=== PATIENT | female | born 1940 | race Caucasian/White ===

== ENCOUNTER → 2018-12-25 | Outpatient (CLI) | payer MEDICARE, MEDICAID | END | disposition home or self-care (01) | LOC: PVL 10:12 | PROVIDERS: ATTEND Internal Medicine Nephrology | DX: I70.291 Other atherosclerosis of native arteries of extremities, right leg (principal) | CPT/HCPCS: 93923 ==

== ENCOUNTER 2019-04-15 08:09 | Inpatient (IN) | payer MEDICARE, MEDICAID ==
[~2019-04-15] VITALS: Ht 160 cm; Wt 90.7 kg
[2019-04-15 09:31] LABS: BASOPHILS % 1.1 % (0.0-2.0); EOSINOPHILS % 2.9 % (0.0-5.0); HEMATOCRIT. 30.8 % (36.0-48.0); LYMPHOCYTES % 18.6 % (20.0-50.0); MEAN CORPUSCULAR HEMOGLOBIN 25.3 pg (28.0-32.0); MEAN CORPUSCULAR VOLUME 77.9 fL (81.0-99.0); MEAN PLATELET VOLUME 9.6 fl (7.4-10.4); MONOCYTES % 10.9 % (2.0-8.0); NEUTROPHILS % 66.5 % (40.0-76.0); PLATELET 124 x1000/uL (130-400); RED BLOOD CELL COUNT 3.95 mill/uL (4.2-5.4); RED CELL DISTRIBUTION WIDTH 17.7 % (11.6-14.6)
[2019-04-15 09:40] LABS: PROTHROMBIN TIME 10.4 sec (9.6-11.0)
[2019-04-15] MEDS ORDERED: SODIUM CHLORIDE 0.9% 1,000 ML IV SCH (09:47)
[2019-04-15] MEDS ORDERED: HYDROCODONE/ACETAMINOPHEN 5/325MG TABLET PO PRN (11:00)
[2019-04-15] MEDS ORDERED: ONDANSETRON HCL 4MG/2ML INJ IV PRN ×2 (11:45→12:45)
[2019-04-15] MEDS ORDERED: MEPERIDINE HCL/PF 25MG/ML CPJ IV PRN (11:45)
[2019-04-15] MEDS ORDERED: LABETALOL 5MG/ML SYR 20 MG/4 ML SYRINGE IV PRN (11:45)
[2019-04-15] MEDS ORDERED: HYDROMORPHONE HCL/PF 2MG/ML CPJ IV PRN (11:45)
[2019-04-15] MEDS ORDERED: FURO80TA3 PO (12:15)
[2019-04-15] MEDS ORDERED: VARENICLINE PO (12:15)
[2019-04-15] MEDS ORDERED: INSU100V36 SQ (12:15)
[2019-04-15] MEDS ORDERED: ESOM40CA53 PO (12:15)
[2019-04-15] MEDS ORDERED: PREG150C46 PO (12:15)
[2019-04-15] MEDS ORDERED: NALO25TA PO (12:15)
[2019-04-15] MEDS ORDERED: RAMI10CA19 PO (12:15)
[2019-04-15] MEDS ORDERED: HYDR-4009 PO (12:15)
[2019-04-15] MEDS ORDERED: ASPI-1393 PO (12:15)
[2019-04-15] MEDS ORDERED: SIMV40TA5 PO (12:15)
[2019-04-15] MEDS ORDERED: CALC30CA PO (12:15)
[2019-04-15] MEDS ORDERED: DOCU-286 PO (12:15)
[2019-04-15] MEDS ORDERED: MAGNESIUM/ALUMINUM HYDROXIDE/SIMETHICONE 30ML UDC PO PRN (12:45)
[2019-04-15] MEDS ORDERED: DOCUSATE SODIUM 100MG CAPSULE PO PRN (12:45)
[2019-04-15] MEDS ORDERED: LORAZEPAM 0.5MG TABLET PO PRN (12:45)
[2019-04-15] MEDS ORDERED: CLONIDINE 0.1MG TABLET PO PRN (12:45)
[2019-04-15] MEDS ORDERED: IPRATROPIUM/ALBUTEROL 0.5-3(2.5)MG/3ML NEB NEB PRN (12:45)
[2019-04-15] MEDS ORDERED: GUAIFENESIN 200MG/10ML SUGAR FREE UDC PO PRN (12:45)
[2019-04-15] MEDS ORDERED: NITROGLYCERIN 0.4MG TABLET SL SL PRN (12:45)
[2019-04-15] MEDS ORDERED: TRAMADOL 50MG TABLET PO PRN (16:46)
[2019-04-15] MEDS ORDERED: DEXTROSE 50% WATER 50ML SYRINGE IV PRN (16:47)
[2019-04-15] MEDS ORDERED: ACETAMINOPHEN 325MG TABLET PO PRN (17:00)
[2019-04-15] MEDS: BLOOD SUGAR DIAGNOSTIC STRIP TEST SCH ×2 (17:20→21:00)
[2019-04-15] MEDS: INSULIN LISPRO 100 UNITS/ML SUBCUT SCH ×2 (17:50→21:00)
[2019-04-15 18:08] LABS: EOSINOPHILS % 3.2 % (0.0-5.0); HEMATOCRIT. 27.4 % (36.0-48.0); LYMPHOCYTES % 25.5 % (20.0-50.0); MEAN CORPUSCULAR HEMOGLOBIN 25.8 pg (28.0-32.0); MEAN CORPUSCULAR VOLUME 78.3 fL (81.0-99.0); MEAN PLATELET VOLUME 9.3 fl (7.4-10.4); MONOCYTES % 10.1 % (2.0-8.0); NEUTROPHILS % 60.2 % (40.0-76.0); PLATELET 109 x1000/uL (130-400); RED CELL DISTRIBUTION WIDTH 17.7 % (11.6-14.6)
[2019-04-15 18:23] VITALS: BP 120/60
[2019-04-15] MEDS ORDERED: PNEUMOCOCCAL 23-VAL P-SAC VAC 0.5 ML IM ONE (19:15)
[2019-04-15] MEDS ORDERED: INFLUENZA VIRUS VACCINE(AFLURIA) 0.5ML SYR IM ONE (19:15)
[2019-04-15 20:00] VITALS: BP 155/51
[2019-04-15] MEDS: FAMOTIDINE 20MG TABLET PO SCH (20:11)
[2019-04-15] MEDS ORDERED: ZOLPIDEM TARTRATE 5MG TABLET PO PRN (21:00)
[2019-04-16] VITALS (7 sets, daily range): BP systolic 129–166; BP diastolic 46–60
[2019-04-16] MEDS: BLOOD SUGAR DIAGNOSTIC STRIP TEST SCH ×4 (07:20→20:38)
[2019-04-16] MEDS: INSULIN LISPRO 100 UNITS/ML SUBCUT SCH ×4 (07:35→20:52)
[2019-04-16 10:12] LABS: CLARITY URINE CLEAR (CLEAR); COLOR URINE YELLOW (YELLOW); KETONES URINE NEGATIVE (NEGATIVE); LEUKOCYTE ESTERASE URINE NEGATIVE (NEGATIVE); NITRITE URINE NEGATIVE (NEGATIVE); OCCULT BLOOD URINE NEGATIVE (NEGATIVE); PROTEIN URINE NEGATIVE (NEGATIVE); SPECIFIC GRAVITY URINE 1.016 (1.005-1.030); UROBILINOGEN URINE 0.2 E.U./dL (0.2-1.0)
[2019-04-16] MEDS: CEFAZOLIN 1000MG PREMIX 50 ML IV SCH ×2 (15:53→18:29)
[2019-04-16] MEDS: FAMOTIDINE 20MG TABLET PO SCH (20:33)
[2019-04-17] VITALS: BP 135/58
[2019-04-17] MEDS: CEFAZOLIN 1000MG PREMIX 50 ML IV SCH ×5 (00:49→23:58)
[2019-04-17] MEDS: MORPHINE SULFATE 2 MG/ML CPJ (NOT FOR IM USE) IV PRN ×3 (00:50→16:22)
[2019-04-17 04:00] VITALS: BP 120/58
[2019-04-17] MEDS: BLOOD SUGAR DIAGNOSTIC STRIP TEST SCH ×4 (06:25→20:57)
[2019-04-17 08:00] VITALS: BP 150/50
[2019-04-17] MEDS: INSULIN LISPRO 100 UNITS/ML SUBCUT SCH ×4 (09:28→21:00)
[2019-04-17 10:21] LABS: BASOPHILS % 1.3 % (0.0-2.0); EOSINOPHILS % 3.6 % (0.0-5.0); HEMATOCRIT. 28.2 % (36.0-48.0); HEMOGLOBIN. 9.2 g/dL (12.0-16.0); LYMPHOCYTES % 14.2 % (20.0-50.0); MEAN CORPUSCULAR HEMOGLOBIN 25.8 pg (28.0-32.0); MEAN PLATELET VOLUME 10.1 fl (7.4-10.4); MONOCYTES % 8.4 % (2.0-8.0); NEUTROPHILS % 72.5 % (40.0-76.0); PLATELET 95 x1000/uL (130-400); RED BLOOD CELL COUNT 3.56 mill/uL (4.2-5.4); RED CELL DISTRIBUTION WIDTH 16.9 % (11.6-14.6)
[2019-04-17 12:00] VITALS: BP 127/52
[2019-04-17 16:00] VITALS: BP 152/49
[2019-04-17 20:00] VITALS: BP 136/58
[2019-04-17] MEDS: FAMOTIDINE 20MG TABLET PO SCH (20:08)
[2019-04-18] VITALS: BP 115/52
[2019-04-18] MEDS: MORPHINE SULFATE 2 MG/ML CPJ (NOT FOR IM USE) IV PRN (03:31)
[2019-04-18 04:00] VITALS: BP 151/42
[2019-04-18] MEDS: CEFAZOLIN 1000MG PREMIX 50 ML IV SCH (06:00)
[2019-04-18] MEDS: BLOOD SUGAR DIAGNOSTIC STRIP TEST SCH (06:20)
[2019-04-18] MEDS ORDERED: EPOETIN ALFA 10000UNITS/ML VIAL SUBCUT ONE (08:00)
[2019-04-18] MEDS: INSULIN LISPRO 100 UNITS/ML SUBCUT SCH (09:36)
[2019-04-18 09:39] VITALS: BP 137/74
[2019-04-18 10:46] VITALS: BP 138/68
== END 2019-04-18 10:59 | disposition home health service (06) | DRG 252 ==
LOC: OR 08:09 → 6EST 08:10
PROVIDERS: ADMIT Internal Medicine; ATTEND Internal Medicine
PROC: 04CL0ZZ Extirpation of Matter from Left Femoral Artery, Open Approach (ICD-10-PCS; principal; 2019-04-15)
PROC: 04UL0KZ Supplement Left Femoral Artery with Nonautologous Tissue Substitute, Open Approach (ICD-10-PCS; 2019-04-15)
DX: E11.51 Type 2 diabetes mellitus with diabetic peripheral angiopathy without gangrene (principal); N17.0 Acute kidney failure with tubular necrosis; D62 Acute posthemorrhagic anemia; J98.11 Atelectasis; N25.81 Secondary hyperparathyroidism of renal origin; N18.4 Chronic kidney disease, stage 4 (severe); E11.22 Type 2 diabetes mellitus with diabetic chronic kidney disease; E11.42 Type 2 diabetes mellitus with diabetic polyneuropathy; E78.00 Pure hypercholesterolemia, unspecified; I12.9 Hypertensive chronic kidney disease with stage 1 through stage 4 chronic kidney disease, or unspecified chronic kidney disease; E66.9 Obesity, unspecified; Z96.652 Presence of left artificial knee joint; R33.9 Retention of urine, unspecified; D63.1 Anemia in chronic kidney disease; Z68.35 Body mass index [BMI] 35.0-35.9, adult; Z87.891 Personal history of nicotine dependence
CPT/HCPCS: 36415; 71045; 74176; 76770; 80048; 80061; 81003; 82962; 83036; 85651; 88304; 88311; 93005; 93970; J0690; J0885; J1815; J2270; A4315

== ENCOUNTER → 2021-01-13 | Outpatient (CLI) | payer MEDICARE, MEDICAID ==
[~2021-01-13] MED LIST: ASPI-1497 PO; CALC30CA PO; DOCU-286 PO; ESOM40CA53 PO; FURO80TA3 PO; HYDR-4009 PO; INSU100V36 SQ; NALO25TA PO; PREG150C93 PO; RAMI10CA68 PO; SIMV-46 PO; VARENICLINE PO
== END | disposition home or self-care (01) ==
LOC: MRI 07:59
PROVIDERS: ATTEND Internal Medicine Nephrology
DX: R16.0 Hepatomegaly, not elsewhere classified (principal); K82.0 Obstruction of gallbladder; K44.9 Diaphragmatic hernia without obstruction or gangrene
CPT/HCPCS: 74183; A9577

== ENCOUNTER 2021-03-09 09:50 | Inpatient (IN) | payer MEDICARE, MEDICAID ==
[~2021-03-09] VITALS: Ht 170.2 cm; Wt 92.5 kg
[~2021-03-09 09:50] MED LIST changes: -NALO25TA PO; +NALO25TA4 PO; +PREG150C46 PO; -PREG150C93 PO
[2021-03-09 11:30] VITALS: BP 172/58
[2021-03-09 12:00] VITALS: BP 172/58
[2021-03-09] MEDS ORDERED: DEXTROSE 50% WATER 50ML SYRINGE IV PRN (12:45)
[2021-03-09] MEDS ORDERED: DIAZ5TAB MT (12:54)
[2021-03-09] MEDS: BLOOD SUGAR DIAGNOSTIC STRIP TEST SCH ×3 (13:24→21:05)
[2021-03-09] MEDS: AMLODIPINE 10MG TABLET PO SCH (13:25)
[2021-03-09] MEDS: LOSARTAN POTASSIUM 50 MG TABLET PO SCH ×2 (13:25→21:14)
[2021-03-09] MEDS: FUROSEMIDE 40MG TABLET PO SCH (13:25)
[2021-03-09] MEDS: INSULIN LISPRO 100 UNITS/ML SUBCUT SCH ×4 (13:26→21:00)
[2021-03-09] MEDS ORDERED: IPRATROPIUM/ALBUTEROL 0.5-3(2.5)MG/3ML NEB NEB PRN (13:30)
[2021-03-09] MEDS ORDERED: ONDANSETRON HCL 4MG/2ML INJ IV PRN (13:30)
[2021-03-09] MEDS ORDERED: CLONIDINE 0.1MG TABLET PO PRN (13:30)
[2021-03-09] MEDS ORDERED: AMLODIPINE 10MG TABLET PO SCH (13:30)
[2021-03-09] MEDS ORDERED: ACETAMINOPHEN 650MG SUPP PR PRN (13:30)
[2021-03-09] MEDS ORDERED: GUAIFENESIN 200MG/10ML SUGAR FREE UDC PO PRN (13:30)
[2021-03-09] MEDS ORDERED: DOCUSATE SODIUM 100MG CAPSULE PO PRN (13:30)
[2021-03-09] MEDS ORDERED: ACETAMINOPHEN 650MG/20.3ML UDC GT PRN (13:30)
[2021-03-09] MEDS ORDERED: MAGNESIUM/ALUMINUM HYDROXIDE/SIMETHICONE 30ML UDC PO PRN (13:30)
[2021-03-09] MEDS ORDERED: NALOXONE HCL 0.4MG/ML VIAL IV PRN (14:30)
[2021-03-09 16:00] VITALS: BP 153/49
[2021-03-09] MEDS ORDERED: INFLUENZA VACCINE 05/PF 0.5 ML SYRINGE IM ONE (16:00)
[2021-03-09] MEDS ORDERED: PNEUMOCOCCAL 23-VAL P-SAC VAC 0.5 ML IM ONE (16:00)
[2021-03-09] MEDS ORDERED: APIX2.5T MT (18:20)
[2021-03-09] MEDS ORDERED: DIXL10 MT (18:20)
[2021-03-09] MEDS ORDERED: METO5TAB94 MT (18:20)
[2021-03-09] MEDS ORDERED: ATOR20TA65 MT (18:20)
[2021-03-09] MEDS ORDERED: DAPA10TA MT (18:20)
[2021-03-09] MEDS ORDERED: FOLI-43 MT (18:20)
[2021-03-09] MEDS ORDERED: ISOS60TA76 PO (18:20)
[2021-03-09] MEDS ORDERED: *PATIENT'S OWN MEDICATION STORAGE XX SCH (18:45)
[2021-03-09 19:56] LABS: BASOPHILS % 0.9 % (0.0-2.0); HEMATOCRIT. 32.2 % (36.0-48.0); HEMOGLOBIN. 10.2 g/dL (12.0-16.0); LYMPHOCYTES % 20.6 % (20.0-50.0); MEAN CORPUSCULAR HEMOGLOBIN 23.8 pg (28.0-32.0); MEAN CORPUSCULAR VOLUME 75.4 fL (81.0-99.0); MEAN PLATELET VOLUME 9.9 fl (7.4-10.4); MONOCYTES % 8.8 % (2.0-8.0); NEUTROPHILS % 66.7 % (40.0-76.0); PLATELET 205 x1000/uL (130-400); RED BLOOD CELL COUNT 4.27 mill/uL (4.2-5.4); RED CELL DISTRIBUTION WIDTH 19.4 % (11.6-14.6)
[2021-03-09 19:58] LABS: CHLORIDE 105 mEq/L (98-107)
[2021-03-09 20:00] VITALS: BP 129/35
[2021-03-09 20:02] LABS: INR 1.1; PARTIAL THROMBOPLASTIN TIME 28.5 sec (23.4-31.0); PROTHROMBIN TIME 11.3 sec (9.6-11.0)
[2021-03-09 20:04] LABS: PHOSPHORUS 4.2 mg/dL (2.5-4.9)
[2021-03-09 20:32] LABS: CLARITY URINE CLOUDY (CLEAR); COLOR URINE YELLOW (YELLOW); KETONES URINE NEGATIVE (NEGATIVE); LEUKOCYTE ESTERASE URINE 3+ (NEGATIVE); NITRITE URINE NEGATIVE (NEGATIVE); OCCULT BLOOD URINE TRACE (NEGATIVE); PH URINE 5.5 (4.5-8.0); PROTEIN URINE NEGATIVE (NEGATIVE); SPECIFIC GRAVITY URINE 1.007 (1.005-1.030); UROBILINOGEN URINE 0.2 E.U./dL (0.2-1.0)
[2021-03-09] MEDS: INSULIN GLARGINE UD 100 UNITS/ML SYR SUBCUT SCH (21:06)
[2021-03-09] MEDS: DOXAZOSIN MESYLATE 2MG TABLET PO SCH (21:13)
[2021-03-09] MEDS: HYDROCODONE/ACETAMINOPHEN 5/325MG TABLET PO PRN (21:14)
[2021-03-09] MEDS ORDERED: ENOXAPARIN 30MG/0.3ML SYR SUBCUT SCH (22:30)
[2021-03-10] VITALS (16 sets, daily range): BP systolic 109–149; BP diastolic 37–64
[2021-03-10] MEDS: BLOOD SUGAR DIAGNOSTIC STRIP TEST SCH ×4 (06:22→21:26)
[2021-03-10] MEDS: INSULIN LISPRO 100 UNITS/ML SUBCUT SCH ×7 (06:57→21:00)
[2021-03-10] MEDS: HYDROCODONE/ACETAMINOPHEN 5/325MG TABLET PO PRN ×2 (08:30→13:21)
[2021-03-10] MEDS: LOSARTAN POTASSIUM 50 MG TABLET PO SCH ×2 (08:33→18:23)
[2021-03-10] MEDS: FUROSEMIDE 40MG TABLET PO SCH (08:33)
[2021-03-10] MEDS: AMLODIPINE 10MG TABLET PO SCH (08:33)
[2021-03-10] MEDS ORDERED: CEFTRIAXONE 1 G PREMIX 50 ML IV SCH (09:45)
[2021-03-10 10:57] LABS: EOSINOPHILS % 3.7 % (0.0-5.0); HEMATOCRIT. 28.8 % (36.0-48.0); HEMOGLOBIN. 9.1 g/dL (12.0-16.0); MEAN CORPUSCULAR HEMOGLOBIN 24.1 pg (28.0-32.0); MEAN CORPUSCULAR VOLUME 76.5 fL (81.0-99.0); MEAN PLATELET VOLUME 9.8 fl (7.4-10.4); MONOCYTES % 11.6 % (2.0-8.0); NEUTROPHILS % 62.7 % (40.0-76.0); PLATELET 158 x1000/uL (130-400); RED BLOOD CELL COUNT 3.77 mill/uL (4.2-5.4); RED CELL DISTRIBUTION WIDTH 19.7 % (11.6-14.6)
[2021-03-10] MEDS ORDERED: CEFTRIAXONE 1,000 MG in DEXTROSE 5% WATER 50 ML IV SCH (11:00)
[2021-03-10] MEDS ORDERED: LIDOCAINE HCL 1% 20ML VIAL (Pyxis) INJ ONE (11:01)
[2021-03-10] MEDS ORDERED: SODIUM BICARBONATE 4% (2.4MEQ) 5ML VIAL IV ONE (11:01)
[2021-03-10] MEDS ORDERED: FENTANYL CITRATE/PF 50MCG/ML 2ML VIAL ONE (11:01)
[2021-03-10 11:05] LABS: CHLORIDE 105 mEq/L (98-107)
[2021-03-10] MEDS ORDERED: SODIUM CHLORIDE 0.9% 10ML VIAL ONE (11:17)
[2021-03-10] MEDS ORDERED: FENTANYL CITRATE/PF 50MCG/ML 2ML VIAL IV SCH (12:15)
[2021-03-10] MEDS: DOXAZOSIN MESYLATE 2MG TABLET PO SCH (20:56)
[2021-03-10] MEDS: ENOXAPARIN 40MG/0.4ML SYR SUBCUT SCH (21:00)
[2021-03-10] MEDS: INSULIN GLARGINE UD 100 UNITS/ML SYR SUBCUT SCH (21:27)
[2021-03-11] VITALS: BP 156/38
[2021-03-11 02:23] LABS: HEMATOCRIT 29.5 % (36.0-48.0); HEMOGLOBIN 9.2 g/dL (12.0-16.0)
[2021-03-11 04:00] VITALS: BP 136/38
[2021-03-11] MEDS: INSULIN LISPRO 100 UNITS/ML SUBCUT SCH ×7 (06:48→20:38)
[2021-03-11] MEDS: BLOOD SUGAR DIAGNOSTIC STRIP TEST SCH ×4 (06:48→21:59)
[2021-03-11] MEDS: HYDROCODONE/ACETAMINOPHEN 5/325MG TABLET PO PRN ×2 (09:19→15:57)
[2021-03-11] MEDS: LOSARTAN POTASSIUM 50 MG TABLET PO SCH ×2 (09:20→17:04)
[2021-03-11] MEDS: OMEPRAZOLE 20MG CAPSULE EXTENDED RELEASE PO SCH (09:20)
[2021-03-11] MEDS: FUROSEMIDE 40MG TABLET PO SCH (09:20)
[2021-03-11] MEDS: AMLODIPINE 10MG TABLET PO SCH (09:20)
[2021-03-11 12:10] LABS: BASOPHILS % 0.8 % (0.0-2.0); EOSINOPHILS % 0.9 % (0.0-5.0); HEMATOCRIT. 30.7 % (36.0-48.0); HEMOGLOBIN. 9.5 g/dL (12.0-16.0); LYMPHOCYTES % 17.5 % (20.0-50.0); MEAN CORPUSCULAR HEMOGLOBIN 23.6 pg (28.0-32.0); MEAN CORPUSCULAR VOLUME 75.7 fL (81.0-99.0); MONOCYTES % 10.6 % (2.0-8.0); NEUTROPHILS % 70.2 % (40.0-76.0); PLATELET 174 x1000/uL (130-400); RED BLOOD CELL COUNT 4.05 mill/uL (4.2-5.4); RED CELL DISTRIBUTION WIDTH 19.8 % (11.6-14.6)
[2021-03-11 12:23] LABS: TOTAL IRON BINDING CAPACITY 292 ug/dL (250-450)
[2021-03-11 12:25] LABS: CHLORIDE 106 mEq/L (98-107)
[2021-03-11 14:49] LABS: BG BASE EXCESS -0.5 mmol/L (-2.0-2.0); BG CARBOXYHEMOGLOBIN 0.8 % (0.5-1.5); BG DEOXYHEMOGLOBIN 2.5 % (0.0-5.0); BG FRACTION INSPIRED OXYGEN 21; BG METHEMOGLOBIN 0.1 % (0.0-1.5); BG OXYGEN SATURATION 97.5 % (92.0-98.5); BG OXYHEMOGLOBIN 96.6 % (94.0-97.0); BG PCO2 28.8 mmHg (35.0-45.0); BG PH 7.501 (7.350-7.450); BG PO2 94.1 mmHg (75.0-100.0); BG SAMPLE SITE RIGHT RADIAL; BG TOTAL HEMOGLOBIN 10.3 g/dL (12.0-18.0); BG VENT MODE ROOM AIR
[2021-03-11 20:00] VITALS: BP 131/38
[2021-03-11] MEDS: ENOXAPARIN 40MG/0.4ML SYR SUBCUT SCH (20:17)
[2021-03-11] MEDS: DOXAZOSIN MESYLATE 2MG TABLET PO SCH (20:36)
[2021-03-11] MEDS ORDERED: EPOETIN ALFA-EPBX 4,000 UNIT/ML VIAL SUBCUT SCH (21:00)
[2021-03-11] MEDS: INSULIN GLARGINE UD 100 UNITS/ML SYR SUBCUT SCH (21:03)
[2021-03-12] VITALS: BP 124/41
[2021-03-12 04:00] VITALS: BP 129/38
[2021-03-12] MEDS: INSULIN LISPRO 100 UNITS/ML SUBCUT SCH ×4 (07:10→12:40)
[2021-03-12] MEDS: BLOOD SUGAR DIAGNOSTIC STRIP TEST SCH ×2 (07:17→12:58)
[2021-03-12] MEDS: OMEPRAZOLE 20MG CAPSULE EXTENDED RELEASE PO SCH (07:21)
[2021-03-12] MEDS: FUROSEMIDE 40MG TABLET PO SCH (09:03)
[2021-03-12] MEDS: LOSARTAN POTASSIUM 50 MG TABLET PO SCH (09:03)
[2021-03-12] MEDS: AMLODIPINE 10MG TABLET PO SCH (09:06)
[2021-03-12 13:20] VITALS: BP 120/55
== END 2021-03-12 14:56 | disposition home or self-care (01) | DRG 189 ==
LOC: 8WST 09:50
PROVIDERS: ADMIT Hospitalist; ATTEND Hospitalist
PROC: 0FJ03ZZ Inspection of Liver, Percutaneous Approach (ICD-10-PCS; principal; 2021-03-10)
DX: J96.01 Acute respiratory failure with hypoxia (principal); E44.1 Mild protein-calorie malnutrition; N18.4 Chronic kidney disease, stage 4 (severe); N39.0 Urinary tract infection, site not specified; D63.1 Anemia in chronic kidney disease; E11.22 Type 2 diabetes mellitus with diabetic chronic kidney disease; E11.36 Type 2 diabetes mellitus with diabetic cataract; E11.42 Type 2 diabetes mellitus with diabetic polyneuropathy; E11.51 Type 2 diabetes mellitus with diabetic peripheral angiopathy without gangrene; E66.9 Obesity, unspecified; E78.00 Pure hypercholesterolemia, unspecified; E78.5 Hyperlipidemia, unspecified; E87.5 Hyperkalemia; F32.A Depression, unspecified; F41.9 Anxiety disorder, unspecified; I12.9 Hypertensive chronic kidney disease with stage 1 through stage 4 chronic kidney disease, or unspecified chronic kidney disease; I83.90 Asymptomatic varicose veins of unspecified lower extremity; K59.00 Constipation, unspecified; M19.90 Unspecified osteoarthritis, unspecified site; R16.0 Hepatomegaly, not elsewhere classified; J44.9 Chronic obstructive pulmonary disease, unspecified; Z96.653 Presence of artificial knee joint, bilateral; Z96.643 Presence of artificial hip joint, bilateral; G43.909 Migraine, unspecified, not intractable, without status migrainosus; L29.9 Pruritus, unspecified; Z20.822 Contact with and (suspected) exposure to COVID-19; Z82.49 Family history of ischemic heart disease and other diseases of the circulatory system; Z83.3 Family history of diabetes mellitus; Z79.899 Other long term (current) drug therapy; Z79.4 Long term (current) use of insulin; Z68.32 Body mass index [BMI] 32.0-32.9, adult; Z87.891 Personal history of nicotine dependence
CPT/HCPCS: 36415; 36600; 71045; 76942; 80053; 80061; 81003; 82375; 82728; 82805; 82962; 83036; 83540; 83550; 84100; 85014; 85018; 85025; 87426; 90686; 90732; 93306; 93970; 97162; 97530; C1893; J0696; J0885; J1650; J1815; J3010; J3490; J7060